=== PATIENT | female | born 1990 | race Two or more races ===

== ENCOUNTER 2024-02-25 13:59 | Emergency (ER) | payer OTHER, SELFPAY ==
[2024-02-25 14:05] VITALS: BP 129/78
[2024-02-25 15:47] VITALS: BP 113/67
[2024-02-25 16:00] VITALS: BP 113/67
[2024-02-25 17:25] VITALS: BP 119/73
--- NOTE | 2024-02-25 17:54 | ED.GENMED ---
History of Present Illness
General
Chief Complaint: Problems
Time Seen by Provider: 02/25/24 15:05
History of Present Illness
History of Present Illness:
33-year-old female, G4, P2 currently 7 weeks gestational age presents to the emergency department for evaluation of intermittent brown and bloody vaginal discharge for the past 2 weeks. Denies any lower abdominal or pelvic pain. History of a
miscarriage in the first trimester last year. No fevers or chills
Review of Systems
Review of Systems
Allergies reviewed?: Yes
All Other Systems: ROS reviewed and negative except as documented in HPI and ROS
Phy Exam
Physical Exam
Physical Exam:
GEN: Well appearing, NAD, WDWN
HEENT: Oral mucosa moist, no scleral icterus
Cardiac: Regular rate
Lung: No respiratory distress, no tachypnea
MSK: No gross deformity or injuries
Skin: Good color, no pallor or jaundice, no rashes
Neuro: AO x3, moves all extremities freely
Psych: Calm, cooperative
Course
Orders/Labs/Results
Orders:
Orders
02/25/24 15:24
US W Transvaginal Urgent
Comment:
Reason For Exam: vag bleed 1st trimester
02/25/24 15:42
Blood Group&Type Urgent
Beta HCG Quantitative Urgent
Is this a screen?: No
02/25/24 16:36
Type+Screen Urgent
BBK Wristband Number:
Vital Signs
Initial and Last Documented VS:
Initial Vital Signs
Temp Pulse Resp BP Pulse Ox
98.5 F 91 16 129/78 100
02/25/24 14:05 02/25/24 14:05 02/25/24 14:05 02/25/24 14:05 02/25/24 14:05
Last Documented Vital Signs
Temp Pulse Resp BP Pulse Ox
98.5 F 83 18 119/73 99
02/25/24 14:05 02/25/24 18:24 02/25/24 18:24 02/25/24 18:24 02/25/24 18:24
Information
Weeks gestation: Weeks: (7)
Location: Location: ([facility])
MDM/Problems Addressed
MDM/Problems Addressed:
Ultrasound shows live [facility] with good heart tones, no evidence of subchorionic hemorrhage. Educated patient that while this is a reassuring finding cannot completely rule out the possibility of a developing miscarriage. Given the color of the
discharge this is more likely implantation bleeding. Recommend outpatient [facility] follow-up for repeat hCG and/or ultrasound as appropriate. Educated on return parameters
*Critical Care Note
Total Time (30-74mins, 75-104mins- exclusive of procedures): Not Applicable
ED Attending Note
-
Portions of this chart may have been created with voice recognition software.� Occasional wrong word or��sound alike� substitutions may have occurred due to the inherent limitations of voice recognition software.
Discharge Plan
Departure
Patient Disposition: Home (Routine Discharge)
Date of Disposition: 02/25/24
Time of Disposition: 17:54
Patient with high blood pressure during this ER visit?: No
Discharge Problem:
Threatened miscarriage
Instructions: Threatened Miscarriage (DC)
Referrals:
Citlaly Noyola MD [Family Provider] -
Activity Restrictions/Additional Instructions:
Follow up with your [facility] within 1 week for re-evaluation
Interventions
Interventions:
*Risk Screen - Suicide Last Done: 02/25/24 15:44
*General Assessment Last Done: 02/25/24 18:24
*Neglect/Abuse Screening Last Done: 02/25/24 15:44
ED- Fall Risk Assessment Last Done: 02/25/24 18:24
*ED COVID-19 Vaccine History Last Done: 02/25/24 18:24
*Nursing Disposition Last Done: 02/25/24 18:24
ED-Female Genitourinary Assessment Last Done: 02/25/24 17:55
Discharge Date and Time
Discharge Date/Time: 02/25/24 18:25
Print Language: BENGALI
[2024-02-25 18:24] VITALS: BP 119/73
== END 2024-02-25 18:25 | disposition home or self-care (01) ==
LOC: EMR 13:59
PROVIDERS: Physician Assistant; EMERGENCY PHYSICIAN Emergency Medicine; FAMILY PHYSICIAN Student in an Organized Health Care Education/Training Program
DX: O20.0 Threatened abortion (principal); Z3A.01 Less than 8 weeks gestation of pregnancy
CPT/HCPCS: 99284; 76801; 76817; 84702; 86850; 86900; 86901